=== PATIENT | female | born 1955 | race Caucasian/White ===

== ENCOUNTER → 2023-11-11 13:46 | Outpatient (REF) | payer OTHER, SELFPAY | LOC: RCS 13:46 | PROVIDERS: ATTENDING PHYSICIAN Nuclear Medicine Nuclear Cardiology; FAMILY PHYSICIAN Internal Medicine | DX: I50.33 Acute on chronic diastolic (congestive) heart failure (principal); R60.0 Localized edema; I10 Essential (primary) hypertension | CPT/HCPCS: 93306 ==